=== PATIENT | female | born 1970 | race Caucasian/White ===

== ENCOUNTER 2017-11-09 13:41 | Outpatient (CLI) | payer BC | END 2017-11-09 13:42 | disposition home or self-care (01) | LOC: BICMAMMO 13:41 | PROVIDERS: ATTEND Family Medicine | DX: Z12.31 Encounter for screening mammogram for malignant neoplasm of breast (principal) | CPT/HCPCS: 77063; 77067 ==

== ENCOUNTER 2018-12-15 14:33 | Outpatient (CLI) | payer BC ==
--- NOTE | 2018-12-15 16:47 | MRI ---
LUMBAR SPINE MRI WITHOUT CONTRAST: 12/15/18 HISTORY: Paresthesia. Bilateral foot pain times a few years. COMPARISON: None. FINDINGS: Appropriate T1 marrow signal intensity of the lumbar vertebrae. Lumbar spine vertebral body height is maintained. There is no fracture. No significant STIR hyperintensity to suggest vertebral body edema or ligamentous injury. Appropriate signal intensity of the paraspinal muscles. Appropriate signal intensity of the solid organs. Conus medullaris terminates at the superior aspect of L2. T12-L1: Adequate disc hydration. No significant central canal stenosis or significant neural foramina l narrowing. L1-L2: Adequate disc hydration. No significant central canal stenosis or significant neural foramina l narrowing. L2-L3: Adequate disc hydration. No significant posterior disc abnormality. Minimal ligamentum flavum thickening and facet hypertrophy. No significant central canal stenosis. Bilaterally, neural foramina are patent. L3-L4: Adequate disc hydration. No posterior disc abnormality. No significant central canal stenosis or significant neural foraminal narrowing. L4-L5: Adequate disc hydration. No significant loss of disc space height. There is a central disc pro trusion with associated T2 and STIR hyperintensity of the annulus compatible with a fissure. Mild srinath tral canal stenosis. Disc material encroaches upon both subarticular zones without any obscuration of either traversing L5 nerve roots. Bilaterally, neural foramina are patent. L5-S1: Mild loss of disc space height. There is a central/right paracentral disc protrusion with asso ciated T2 and STIR hyperintensity of the annulus suggesting an annular fissure. No significant centra l canal stenosis. Bilaterally, neural foramina are patient. IMPRESSION: 1. No significant central canal stenosis or foraminal narrowing. 2. Annular fissure at L4-L5 and L5-S1. POS: TPC
== END 2018-12-15 14:34 | disposition home or self-care (01) ==
LOC: SCSMRI 14:33
PROVIDERS: ATTEND Psychiatry & Neurology Neurology
DX: R20.2 Paresthesia of skin (principal); Q05.7 Lumbar spina bifida without hydrocephalus
CPT/HCPCS: 72148

== ENCOUNTER 2019-04-07 07:38 | Outpatient (CLI) | payer BC ==
--- NOTE | 2019-04-07 09:49 | ULT ---
THYROID ULTRASOUND: INDICATION: Thyroid nodule: COMPARISON: None. FINDINGS: The right thyroid lobe measures 1.1 x 1.1 x 3.9 cm. The left thyroid lobe measures 1.2 x 1.5 x 3.6 c m. The thyroid isthmus measures 0.4 cm. There is a spongiform nodule within the right mid thyroid l obe measuring 0.5 x 0.5 x 0.7 cm. IMPRESSION: Benign nodule within the right mid thyroid lobe. POS: OFF
== END 2019-04-07 07:39 | disposition home or self-care (01) ==
LOC: SCSULT 07:38
PROVIDERS: ATTEND Family Medicine
DX: E04.1 Nontoxic single thyroid nodule (principal)
CPT/HCPCS: 76536

== ENCOUNTER 2025-01-26 09:30 | Outpatient (CLI) | payer BC | END 2025-01-26 09:31 | disposition home or self-care (01) | LOC: SCSBT 09:30 | PROVIDERS: ATTEND Obstetrics & Gynecology | DX: Z13.820 Encounter for screening for osteoporosis (principal) | CPT/HCPCS: 77080 ==